=== PATIENT | male | born 1945 | race Hispanic/Latino ===

== ENCOUNTER → 2020-12-05 | Outpatient (CLI) | payer MEDICARE ==
[~2020-12-05] MED LIST: IOPAMIDOL 200 MG/ML 20 ML VIAL IT ONE; LIDOCAINE HCL 1% LOCAL INJ 20 ML VIAL ONE
[2020-12-05 12:57] LABS: HEMOGLOBIN 13.2 g/dL (14.0-18.0)
[2020-12-05 13:08] LABS: INR 0.98; PROTHROMBIN TIME 13.6 seconds (11.9-14.5)
[2020-12-05 13:09] LABS: PARTIAL THROMBOPLASTIN TIME 29.6 seconds (23.8-35.5)
== END ==
LOC: DX 12:37
PROVIDERS: ATTEND Family Medicine
DX: M54.2 Cervicalgia (principal)
CPT/HCPCS: 36415; 62302; 72126; 77002; 85014; 85049; 85610; 85730; J2001; Q9967

== ENCOUNTER → 2021-01-14 | Outpatient (CLI) | payer MEDICARE | LOC: CT 13:34 | PROVIDERS: ATTEND Family Medicine | DX: J94.2 Hemothorax (principal) | CPT/HCPCS: 71250 ==

== ENCOUNTER → 2021-02-27 | Outpatient (CLI) | payer MEDICARE | LOC: US 09:19 | PROVIDERS: ATTEND Family Medicine | DX: K76.9 Liver disease, unspecified (principal) | CPT/HCPCS: 76705 ==